=== PATIENT | female | born 1950 | race Caucasian/White ===

== ENCOUNTER 2016-09-03 14:06 | Inpatient (IN) | payer BC ==
[~2016-09-03] VITALS: Ht 170.2 cm; Wt 49.9 kg
[~2016-09-03 14:06] MED LIST: BAYER CHEWABLE81 MG PO; COLACE100 MG PO; FISH OIL 500 MG1 CAP PO; FOLATE0.4 MG PO; HYDROCODONE-APA1 TAB PO; KLOR-CON 1010 MEQ PO; MAG-OX 400 MG400 MG PO; MIRALAX17 GM PO; MULTIPLE VITAMI1 TA1 PO; PROTONIX40 MG PO; TOPROL XL25 MG PO; VITAMIN B-121000 MCG PO
[2016-09-03 15:49] LABS: BASOPHILS 0.2 % (0-2); EOSINOPHILS 0.9 % (0-7); HEMATOCRIT 45.5 % (36.0-48.0); HEMOGLOBIN 15.1 g/dL (12-16); IMMATURE GRANULOCYTES 0.2 % (0-5); LYMPHOCYTES 23.2 % (15-50); MCH 34.5 pg (26.0-34.0); MCHC 33.2 g/dL (31.0-37.0); MCV 103.9 fL (80.0-100.0); MEAN PLATELET VOLUME 9.5 fL (7.4-10.4); MONOCYTES 15.8 % (2-11); NEUTROPHILS 59.7 % (40-80); RBC 4.38 10x6/uL (4.00-5.40); RDW 14.1 % (11.5-14.5); WBC 4.3 10x3/uL (4.8-10.8)
[2016-09-03 15:50] LABS: APPEARANCE HAZY (CLEAR); BILIRUBIN 2+ (NEGATIVE); COLOR AMBER (YELLOW); GLUCOSE NEGATIVE (NEGATIVE); KETONE NEGATIVE (NEGATIVE); LEUKOCYTE ESTERASE TRACE (NEGATIVE); NITRITE NEGATIVE (NEGATIVE); PROTEIN NEGATIVE (NEGATIVE)
[2016-09-03 15:50] LABS: PLATELET COUNT 108 10x3/uL (130-400)
[2016-09-03 15:53] LABS: BACTERIA FEW /hpf (NONE SEEN); CALCIUM OXALATE CRYSTALS OCC /hpf (NONE SEEN); MUCUS >1+ /lpf (NONE SEEN); RED CELLS - URINE OCC /hpf (0-5); WHITE CELLS - URINE 0-5 /hpf (0-5)
[2016-09-03 16:03] LABS: ALBUMIN 2.3 g/dL (3.4-5.0); ALKALINE PHOSPHATASE 160 U/L (46-116); ALT (SGPT) 35 U/L (10-68); BILIRUBIN - TOTAL 1.46 mg/dL (0.2-1.3); CALC OSMOLALITY 276 mosm/kg (275-300); CALCIUM 9.2 mg/dL (8.5-10.1); CARBON DIOXIDE 35.6 mmol/L (21.0-32.0); CHLORIDE - SERUM 100 mmol/L (98-107); CREATININE - SERUM 0.6 mg/dL (0.6-1.3); GLUCOSE 120 mg/dL (74-106); POTASSIUM - SERUM 3.3 mmol/L (3.5-5.1); PROTEIN - SERUM 6.4 g/dL (6.4-8.2); SODIUM 140 mmol/L (136-145); UREA NITROGEN 5 mg/dL (7-18); eGFR NON AFRICAN AMERICAN > 90 mL/min (90-120)
[2016-09-03 20:28] LABS: UDS - AMPHET NEGATIVE QUAL (NEGATIVE); UDS - BARB NEGATIVE QUAL (NEGATIVE); UDS - BENZO POSITIVE QUAL (NEGATIVE); UDS - COCAINE NEGATIVE QUAL (NEGATIVE); UDS - METH NEGATIVE QUAL (NEGATIVE); UDS - OPIATE NEGATIVE QUAL (NEGATIVE); UDS - PCP NEGATIVE QUAL (NEGATIVE); UDS - THC NEGATIVE QUAL (NEGATIVE)
[2016-09-04 00:24] LABS: CHOL - HDL RATIO 2.1 ratio (2.3-4.1); LDL-HDL RATIO 0.8 ratio (1.5-3.5)
[2016-09-04 08:27] LABS: CALC OSMOLALITY 277 mosm/kg (275-300); CALCIUM 8.6 mg/dL (8.5-10.1); CARBON DIOXIDE 31.9 mmol/L (21.0-32.0); CHLORIDE - SERUM 102 mmol/L (98-107); CREATININE - SERUM 0.4 mg/dL (0.6-1.3); GLUCOSE 80 mg/dL (74-106); POTASSIUM - SERUM 3.2 mmol/L (3.5-5.1); SODIUM 141 mmol/L (136-145); UREA NITROGEN 7 mg/dL (7-18); eGFR NON AFRICAN AMERICAN > 90 mL/min (90-120)
--- NOTE | 2016-09-04 21:20 | NUR ---
RECEIVED PATIENT FROM ER VIA BED ACCOMPANIED BY HOSPITAL STAFF AND FAMILY. PATIENT ALERT AND ORIENTED TO TIME PLACE AND SITUATION. CAN FOLLOW COMMANDS . VSS. SEE ASSESSMENT FLOWSHEET FOR MORE DETAILS.
[2016-09-04 22:00] VITALS: BP 101/83
--- NOTE | 2016-09-04 22:30 | NUR ---
PATIENT ATTEMPTING TO GET OUT OF BED. REORIENTED PATIENT, STATES SHE HAD A HALLUCINATION OF DAUGHTER IN LAW AT BEDSIDE WITH A WHEELCHAIR. BED ALARM RESET, WILL MONITOR.
[2016-09-04 22:42] VITALS: BP 122/79; BMI 17.2
[2016-09-04 23:00] VITALS: BP 92/74
[2016-09-05] VITALS (16 sets, daily range): BP systolic 90–134; BP diastolic 58–89; Ht 170.2 cm; Wt 49.9 kg
--- NOTE | 2016-09-05 02:30 | NUR ---
PATIENT PULLED OUT IV. 3 NURSES FAILED TO RESTART IV. PATIENT ASKED FOR BREAK.
[2016-09-05 04:18] LABS: BASOPHILS 0.8 % (0-2); EOSINOPHILS 3.4 % (0-7); HEMATOCRIT 42.2 % (36.0-48.0); IMMATURE GRANULOCYTES 0.3 % (0-5); LYMPHOCYTES 47.6 % (15-50); MCH 34.5 pg (26.0-34.0); MCHC 33.2 g/dL (31.0-37.0); MCV 103.9 fL (80.0-100.0); MEAN PLATELET VOLUME 10.4 fL (7.4-10.4); MONOCYTES 13.4 % (2-11); NEUTROPHILS 34.5 % (40-80); PLATELET COUNT 128 10x3/uL (130-400); RBC 4.06 10x6/uL (4.00-5.40); RDW 13.9 % (11.5-14.5); WBC 3.6 10x3/uL (4.8-10.8)
[2016-09-05 04:39] LABS: CALCIUM 8.5 mg/dL (8.5-10.1); CARBON DIOXIDE 34.5 mmol/L (21.0-32.0); CHLORIDE - SERUM 104 mmol/L (98-107); CREATININE - SERUM 0.3 mg/dL (0.6-1.3); MAGNESIUM - SERUM 1.8 mg/dL (1.8-2.4); POTASSIUM - SERUM 3.5 mmol/L (3.5-5.1); SODIUM 144 mmol/L (136-145); eGFR NON AFRICAN AMERICAN > 90 mL/min (90-120)
[2016-09-05 04:41] LABS: CALC OSMOLALITY 281 mosm/kg (275-300); GLUCOSE 69 mg/dL (74-106); UREA NITROGEN 5 mg/dL (7-18)
--- NOTE | 2016-09-05 06:13 | NUR ---
PATIENT RESTING WELL. ALERT AND ORIENTED BUT HAVING HALLUCINATIONS OF FAMILY MEMBERS AT TIMES.
--- NOTE | 2016-09-05 08:05 | NUR ---
PT UP IN BED AWAKE WATCHING TV AT THIS TIME. ALERT AND ORIENTED WHEN ASSESSED PER QUESTIONS, PT ALSO NOTED TO HAVE SOME HALLUCINATIONS. NO ACUTE DISTRESS NOTED. AT THIS TIME ATTEMPTED TO START IV TO RIGHT FOREARM WITH NO SUCCESS. WILL NOTIFY PHYSICIANS FOR FURTHER ORDERS.
--- NOTE | 2016-09-05 09:37 | NUR ---
NOTED EPISODE OF HALLUCINATION. PT STATED TO THIS NURSE, "IF YOU SEE 2 [employer] AGENTS THEN DO ME A FAVOR, MAKE THEM UNZIP THEIR PANTS, BECAUSE THEY ARE ACTUALLY STRIPPERS." WHEN TRYING TO INFORM PT THAT THERE ARE NOT REALLY ANY FBI ANGENTS OR STRIPPERS PT THEN RESPONDED, "THIS IS NOT A JOKE, I AM SERIOUS." PT ABLE TO ANSWER ALL ORIENTATION RELATED QUESTIONS SUCH NAME, PLACE, TIME, AND SITUATION. UNABLE TO CONVINCE PT THAT THOSE INDIVIDUALS DO NOT EXIST. WILL CONTINUE PLAN OF CARE.
--- NOTE | 2016-09-05 10:03 | NUR ---
SPOKE WITH PTS SISTER IN LAW AT THIS TIME APPROVED BY PT. AT THIS TIME PT HAD SET UP A CALL IN CODE OF "MARIBEL" AND PT REQUESTS FOR STAFF TO NOTIFY SISTER IN LAW THE CALL IN CODE AND NOTIFY FAMILY. WILL CONTINUE PLAN OF CARE.
--- NOTE | 2016-09-05 11:28 | NUR ---
DR LYNN HERE, ORDERS PLACED.
--- NOTE | 2016-09-05 13:03 | NUR ---
PSYCH CONSULT FAXED TO [facility] WITH FACESHEET. SPOKE WITH CLEO FROM [facility] CONFIRMING THAT CONSULT FAX HAD BEEN RECIEVED.
--- NOTE | 2016-09-05 14:48 | NUR ---
REPORT GIVEN TO JOSE FOR PT TO BE TRANSFERRED TO ROOM 2224. NOTED ROOM TO BE TRANSFERRED TO IS NOT CLEANED FOR PT ARRIVAL YET. WILL TRANSFER PT WHEN ROOM 2224 IS CLEAN. NO ACUTE DISTRESS NOTED. WILL CONTINUE PLAN OF CARE.
--- NOTE | 2016-09-05 15:11 | NUR ---
PT TRANSFERRED AT THIS TIME TO 2224 PER ORDERS. NO ACUTE DISTRESS NOTED. PT TRASNFERRED WITH ALL PERSONAL ITEMS. NO FURTHER ACTIONS.
--- NOTE | 2016-09-05 15:20 | NUR ---
PT RESTING IN BED WITH NO VISABLE SIGNS OF PAIN OR DISCOMFORT. ASSESSMENT DONE. BED IN LOW POSITION AND CALL LIGHT WITHIN REACH. WILL CONTINUE TO MONITOR.
--- NOTE | 2016-09-05 17:52 | NUR ---
PAGEJose RUSS FOR ORDER MODIFICATIONS. PATIENT HAS NO IV.
[2016-09-06 04:00] VITALS: BP 98/56
--- NOTE | 2016-09-06 05:12 | NUR ---
PATIENT SITTING UP IN BED WITH NO VISIBLE SIGNS OF DISTRESS AND DENIES NEEDS AT THIS TIME. BED IN LOWEST POSITION AND CALL LIGHT WITHIN REACH. ENCOURAGED THE PATIENT TO CALL IF SHE HAS NEEDS.
[2016-09-06 05:31] LABS: BASOPHILS 0.5 % (0-2); EOSINOPHILS 2.7 % (0-7); HEMATOCRIT 41.5 % (36.0-48.0); HEMOGLOBIN 13.6 g/dL (12-16); IMMATURE GRANULOCYTES 0.3 % (0-5); LYMPHOCYTES 35.9 % (15-50); MCH 33.9 pg (26.0-34.0); MCHC 32.8 g/dL (31.0-37.0); MCV 103.5 fL (80.0-100.0); MEAN PLATELET VOLUME 10.2 fL (7.4-10.4); MONOCYTES 16.4 % (2-11); NEUTROPHILS 44.2 % (40-80); PLATELET COUNT 120 10x3/uL (130-400); RBC 4.01 10x6/uL (4.00-5.40); RDW 13.9 % (11.5-14.5); WBC 3.7 10x3/uL (4.8-10.8)
[2016-09-06 05:55] LABS: ALKALINE PHOSPHATASE 128 U/L (46-116); ALT (SGPT) 35 U/L (10-68); CALCIUM 8.7 mg/dL (8.5-10.1); CARBON DIOXIDE 32.2 mmol/L (21.0-32.0); CHLORIDE - SERUM 102 mmol/L (98-107); GLUCOSE 73 mg/dL (74-106); PHOSPHOROUS 3.3 mg/dL (2.5-4.9); PROTEIN - SERUM 5.6 g/dL (6.4-8.2); SODIUM 140 mmol/L (136-145)
[2016-09-06 06:03] LABS: CALC OSMOLALITY 275 mosm/kg (275-300); CREATININE - SERUM 0.4 mg/dL (0.6-1.3); MAGNESIUM - SERUM 1.3 mg/dL (1.8-2.4); UREA NITROGEN 7 mg/dL (7-18); eGFR NON AFRICAN AMERICAN > 90 mL/min (90-120)
--- NOTE | 2016-09-06 07:54 | NUR ---
LYING IN BED,WITHOUT DISTRESS.DOOR OPEN TO MONITOR
--- NOTE | 2016-09-06 08:10 | NUR ---
REPORT RECEIVED FROM MARQUIS SAMAYOA. CALL LIGHT IN REACH.
[2016-09-06 09:12] VITALS: BP 80/47
--- NOTE | 2016-09-06 10:14 | NUR ---
ASSESSMENT COMPLETED. AM MEDS ADMINISTERED. SCDs APPLIED TO BLE. BED ALARM ON. PASSWORD AND EMERGENCY CONTACT INFO OBTAINED. REPOSITIONED ON LEFT SIDE. HANK APPLIED TO REDDENED BUTTOCKS. CALL LIGHT IN REACH. WILL CONTINUE WITH PLAN OF CARE.
--- NOTE | 2016-09-06 12:05 | NUR ---
VISITOR IN ROOM. NO NEEDS VOICED AT THIS TIME.
[2016-09-06 12:31] VITALS: BP 108/62
--- NOTE | 2016-09-06 13:24 | HP ---
PATIENT: NIRMAL PERES MEDICAL RECORD: [id number] ACCOUNT: [id number] LOCATION:[id number] : 52 ADMISSION DATE: 09/04/16 HISTORY AND PHYSICAL EXAMINATION HISTORY OF PRESENT ILLNESS: A 66-year-old female admitted through the Emergency Room. She initially was taken to [facility], had a court order to admit her there for treatment for alcohol abuse and declined, was deemed medically unstable, was sent to the Emergency Room, spent greater than 24 hours in the Emergency Room due to confusion, getting released from the court order, was called for patient admission. She declined, but family insisted on admission. She is generally confused, malnourished, very limited ambulation, frequent falls. She is tolerating fluids and diet. PAST MEDICAL HISTORY: Limited historian, but has a generalized weakness, malnourishment and chronic alcohol abuse. CURRENT MEDICATIONS: LISTED ASPIRIN AND METOPROLOL LOW DOSE, WELL MULTIVITAMIN. FAMILY HISTORY: Unobtainable presently. REVIEW OF SYSTEMS: HEENT: Patient denies cephalgia or visual changes. Generally answers appropriately with confusion on some answers or anything in depth. Denies visual changes, tinnitus and epistaxis. Denies dysphagia. CARDIOVASCULAR: Denies chest pain or palpitations. PULMONARY: Denies hemoptysis, denies night sweats. GASTROINTESTINAL: Denies hematemesis, hematochezia, or melena. GENITOURINARY: Denies dysuria. MUSCULOSKELETAL: No acute changes. She does have a visible contusion ecchymosis on the left shoulder with history of frequent falls. ENDOCRINE: Denies polyuria, polydipsia, or polyphagia. PHYSICAL EXAMINATION: VITAL SIGNS: Temperature 97.5, heart rate 96, respirations 16, blood pressure is 104/72 and O2 sats 96% on room air. GENERAL: Alert and oriented to person, in no acute distress. HEENT: No cephalgia, visual changes, tinnitus, epistaxis, or dysphagia. No carotid bruits. No JVD. HEART: Regular rate and rhythm. No S3, S4. No rub. LUNGS: Clear to auscultation bilaterally. Breathing is nonlabored. ABDOMEN: Soft, nontender, cachectic appearance. EXTREMITIES: Present times 4, no edema. Moderate ecchymosis appears to be resolving on the left shoulder. NEUROLOGIC: No discrete focal deficits other than confusion. LABORATORY DATA: CBC: White count 3.6, hemoglobin 14, hematocrit 42.2 and platelets 128. Chemistry shows a sodium of 144, potassium 3.5, chloride 104, bicarbonate 34.5, BUN 5, creatinine 0.3 and magnesium 1.8. DIAGNOSTIC DATA: CT of the head shows atrophy, chronic small vessel ischemia, no acute findings. Chest x-ray shows chronic and old postoperative changes, consideration for subapical scarring, if any clinical correlation, recommendation for CT scan of the chest. HISTORY AND PHYSICAL [id number] NIRMAL PERES ASSESSMENT AND PLAN: Malnutrition, alcohol abuse, general decline, impaired mobility and contusion, left shoulder. The patient is admitted initially to the ICU. We will transfer to the floor. We will obtain an x-ray of her left shoulder. Consult case management for possible placement options, dietary for nutrition assistance, DT prophylaxis. Encourage Gatorade. Consult psychiatry for evaluation and recommendation. We will hold up home pressors until blood pressure improves. TRANSINT:[id number] Voice Confirmation ID: [id number] DOCUMENT ID: [id number] KIRSTIN LOO DO at 1324 CC: [id number] DICTATION DATE: 09/05/16 1150 EXCHANGE TROUBLE SHOOTER: 09/05/16 1307 ADM IN [facility] [address] [place] [address]
--- NOTE | 2016-09-06 14:50 | NUR ---
SLING PLACED TO LEFT ARM PER ORDER. DRY DRSG APPLIED TO RIGHT GREAT TOE PER PATIENT REQUEST. NO DRAINAGE AT THIS TIME.
[2016-09-06 16:33] VITALS: BP 86/55
--- NOTE | 2016-09-06 16:40 | NUR ---
SISTER CALLED AND DEMANDED SHE BE PUT THE EMERGENCY CONTACT AND THE ONE TO MAKE THE DECISIONS. I EXPLAINED TO HER THAT THE PATIENT REQUESTED FOR SOMEONE ELSE TO BE THE EVERGENCY CONTACT AND AT THE THE TIME PATIENT WAS ABLE TO ANSWER ALL OF MY QUESTIONS CORRECTLY SO I HAD TO RESPECT HER WISHES.
--- NOTE | 2016-09-06 18:32 | NUR ---
NO CHANGES IN INITIAL ASSESSMENT. CALL LIGHT IN REACH. BED ALARM ON. SCDs TO BLE. WILL CONTINUE WITH PLAN OF CARE.
[2016-09-06 20:00] VITALS: BP 96/68
[2016-09-07] VITALS: BP 96/56
--- NOTE | 2016-09-07 02:00 | NUR ---
PT IN BED WITH NO DISTRESS. RESPIRATIONS EVEN AND UNLABORED. SIDE RAILS X 2. BED IS LOW. CALL LIGHT IN REACH.
[2016-09-07 04:00] VITALS: BP 91/69
[2016-09-07 04:33] LABS: BASOPHILS 0.6 % (0-2); EOSINOPHILS 4.2 % (0-7); HEMATOCRIT 38.4 % (36.0-48.0); LYMPHOCYTES 43.2 % (15-50); MCH 34.3 pg (26.0-34.0); MCHC 33.9 g/dL (31.0-37.0); MEAN PLATELET VOLUME 10.2 fL (7.4-10.4); MONOCYTES 16.1 % (2-11); NEUTROPHILS 35.9 % (40-80); PLATELET COUNT 118 10x3/uL (130-400); RBC 3.79 10x6/uL (4.00-5.40); RDW 13.6 % (11.5-14.5); WBC 3.1 10x3/uL (4.8-10.8)
[2016-09-07 04:34] LABS: MCV 101.3 fL (80.0-100.0)
[2016-09-07 04:54] LABS: ALBUMIN 1.9 g/dL (3.4-5.0); ALKALINE PHOSPHATASE 120 U/L (46-116); ALT (SGPT) 40 U/L (10-68); BILIRUBIN - DIRECT 0.52 mg/dL (0.00-0.30); BILIRUBIN - INDIRECT 0.45 mg/dL (0.00-1.00); BILIRUBIN - TOTAL 0.97 mg/dL (0.2-1.3); CALC OSMOLALITY 270 mosm/kg (275-300); CALCIUM 8.2 mg/dL (8.5-10.1); CARBON DIOXIDE 30.1 mmol/L (21.0-32.0); CHLORIDE - SERUM 101 mmol/L (98-107); CREATININE - SERUM 0.3 mg/dL (0.6-1.3); GLUCOSE 82 mg/dL (74-106); MAGNESIUM - SERUM 1.3 mg/dL (1.8-2.4); PHOSPHOROUS 3.5 mg/dL (2.5-4.9); PROTEIN - SERUM 5.4 g/dL (6.4-8.2); SODIUM 137 mmol/L (136-145); UREA NITROGEN 7 mg/dL (7-18); eGFR NON AFRICAN AMERICAN > 90 mL/min (90-120)
[2016-09-07 04:58] LABS: POTASSIUM - SERUM 2.8 mmol/L (3.5-5.1)
--- NOTE | 2016-09-07 08:00 | NUR ---
SCHEDULED MEDICATIONS ADMINISTERED AT THIS TIME. ALERT AND ORIENTED. NO IV ACCESS AT THIS TIME. LEFT A VOICEMAIL ON AMOR'S PHONE FOR IV ACCESS. BED ALARM ON AND CALL LIGHT IN REACH, WILL CONTINUE WITH PLAN OF CARE.
--- NOTE | 2016-09-07 09:57 | NUR ---
SPOKE WITH AMOR AT THIS TIME FOR IV ACCESS.
--- NOTE | 2016-09-07 11:05 | NUR ---
INITIATED THIAMINE INJECTION AT THIS TIME TO RIGHT HAND AT THIS TIME.
[2016-09-07 12:44] VITALS: BP 122/73
--- NOTE | 2016-09-07 13:41 | NUR ---
Patient was admitted thru the ER. She was sent to [facility] for medical stabilization prior to ETOH rehab at [facility]. [facility] sent patient as pulse was greater than 120, O2 sat was 88% and temp 99.6. NO court order with patient's paperwork. TC to [facility] Engineer's Office at 1250. Contact phone number [phone]. Referred to [phone]. No answer. Left voice mail message. Await CB. Reportedly the patient is to return to court appointed rehab program.
--- NOTE | 2016-09-07 16:30 | NUR ---
SPOKE WITH OC VERGARA AT DR REUDA'S OFFICE AT THIS TIME IN REGARDS TO PAIN MEDICATION. NEW ORDER GIVEN FOR NORCO-5 Q4HP.
--- NOTE | 2016-09-07 16:31 | NUR ---
PATIENT WAS ADMITTED TO [facility] 08/31-09/02/ SHE COULD NOT PARTICIPATE IN THE RESIDENTIAL PROGRAM SHE WAS INCONTIENT OF URINE AND FECES. SHE REQUIRED ASSISTANCE FOR FEEDING, BATHING, MOBILIZATION ETC. PER [place] LETTER TO [facility], KANNAN WALTERS HAD CONTACTED [facility]ULT [facility] SERVICES AND PATIENT'S PCP, DR RUEDA. 09/03/16 THE PATIENT WAS SENT FROM [facility] TO [facility] BECAUSE DR MANCUSO STATED SHE WAS NOT MEDICALLY STABLE. PATIENT DECLINED TO BE ADMITTED TO THE HOSPITAL. NO ONE TO ASSIST HER AT HOME. FAMILY REFUSED TO ACCEPT. PATIENT WAS NOT MAKING RATIONAL DECISIONS. ER STAFF ATTEMPTED TO FIND A PSYCH FACILITY TC TO [facility] - DECLINED TC TO [facility] BEDS TC TO [place]- ADVISED PATIENT NEEDED GERIPSYCH. [facility] WORKER - NO NAME DOCUMENTED- PHONE NUMBER [phone], EXT [phone]. REC TC FROM NAVIN AWAN, PATIENT'S SISTER IN LAW CALLED. PT'S , PARAM, WAS ADMITTED TO THE [facility] 09/03/16. THE PATIENT HAS NO CHILDREN. SHE HAS A SISTER IN [place]. HER OTHER SISTER IN LAW LIVES IN [place]. MRS AWAN STATES THE PATIENT CALLED & REQUESTED FOR HER TO RUN AN AD IN THE NEWSPAPER FOR A MAN TO STAY WITH HER. NAVIN AWAN SISTER IN LAW [phone]. FIORELLA SHARP IS SISTER IN LAW FROM [place]. WILL ASSSIT W/ DISCHARGE PLANNING.PATIENT WAS ADMITTED TO [facility] 08/31-09/02/ SHE COULD NOT PARTICIPATE IN THE RESIDENTIAL PROGRAM SHE WAS INCONTIENT OF URINE AND FECES. SHE REQUIRED ASSISTANCE FOR FEEDING, BATHING, MOBILIZATION ETC. PER [place] LETTER TO [facility], KANNAN WALTERS HAD CONTACTED [facility] AND PATIENT'S PCP, DR RUEDA. 09/03/16 THE PATIENT WAS SENT FROM [facility] TO [facility] BECAUSE DR MANCUSO STATED SHE WAS NOT MEDICALLY STABLE. PATIENT DECLINED TO BE ADMITTED TO THE HOSPITAL. NO ONE TO ASSIST HER AT HOME. FAMILY REFUSED TO ACCEPT. PATIENT WAS NOT MAKING RATIONAL DECISIONS. ER STAFF ATTEMPTED TO FIND A PSYCH FACILITY TC TO [facility] - DECLINED TC TO [facility] NO BEDS TC TO [place] [facility]- ADVISED PATIENT NEEDED GERIPSYCH. [facility] WORKER - NO NAME DOCUMENTED- PHONE NUMBER [phone], EXT [phone]. REC TC FROM NAVIN AWAN, PATIENT'S SISTER IN LAW CALLED. PT'S , PARAM, WAS ADMITTED TO THE [facility] 09/03/16. THE PATIENT HAS NO CHILDREN. SHE HAS A SISTER IN [place]. HER OTHER SISTER IN LAW LIVES IN [place]. MRS AWAN STATES THE PATIENT CALLED & REQUESTED FOR HER TO RUN AN AD IN THE NEWSPAPER FOR A MAN TO STAY WITH HER. NAVIN AWAN SISTER IN LAW [phone]. FIORELLA SHARP IS SISTER IN LAW FROM [place]. CM WILL ASSSIT W/ DISCHARGE PLANNING.
--- NOTE | 2016-09-07 17:05 | NUR ---
WILL REFER TO [facility] PSYCH UNIT IN THE AM.
[2016-09-07 20:00] VITALS: BP 81/50
--- NOTE | 2016-09-07 20:00 | NUR ---
ASSESSMENT PER FLOWSHEET. SALINE LOCK PATENT RT HAND. SR UP X2 CALL LIGHT WITHIN REACH. HOB UP 35 DEGREES. BED ALARM BED ON. SLING TO LEFT ARM FX CLAVICLE. PT REMAINS CONFUSED TO TIME AND SITUATION. DOOR OPEN.
--- NOTE | 2016-09-07 21:00 | NUR ---
MEDS GIVEN PER MAR.
--- NOTE | 2016-09-07 22:00 | NUR ---
UP WITH HELP TO BR VOIDS ASSISTED BACK TO BED.
--- NOTE | 2016-09-08 | NUR ---
EYES CLOSED RESPIRATIONS WITH EASE AND UNLABORED.
--- NOTE | 2016-09-08 03:00 | NUR ---
EYES CLOSED RESPIRATIONS WITH EASE AND UNLABORED.
[2016-09-08 05:02] LABS: BASOPHILS 1.1 % (0-2); EOSINOPHILS 4.5 % (0-7); HEMATOCRIT 39.3 % (36.0-48.0); HEMOGLOBIN 13.2 g/dL (12-16); IMMATURE GRANULOCYTES 0.3 % (0-5); LYMPHOCYTES 47.5 % (15-50); MCH 34.3 pg (26.0-34.0); MCHC 33.6 g/dL (31.0-37.0); MCV 102.1 fL (80.0-100.0); MEAN PLATELET VOLUME 10.3 fL (7.4-10.4); MONOCYTES 18.4 % (2-11); NEUTROPHILS 28.2 % (40-80); RBC 3.85 10x6/uL (4.00-5.40); RDW 13.7 % (11.5-14.5); WBC 3.6 10x3/uL (4.8-10.8)
[2016-09-08 05:06] LABS: PLATELET COUNT 146 10x3/uL (130-400)
[2016-09-08 05:11] VITALS: BP 92/53
--- NOTE | 2016-09-08 05:20 | NUR ---
RESTING QUIETLY DENIES NEEDS.
[2016-09-08 05:21] LABS: ALBUMIN 2.1 g/dL (3.4-5.0); ALKALINE PHOSPHATASE 135 U/L (46-116); BILIRUBIN - TOTAL 0.89 mg/dL (0.2-1.3); CALC OSMOLALITY 270 mosm/kg (275-300); CALCIUM 8.3 mg/dL (8.5-10.1); CARBON DIOXIDE 30.9 mmol/L (21.0-32.0); CHLORIDE - SERUM 103 mmol/L (98-107); CREATININE - SERUM 0.3 mg/dL (0.6-1.3); GLUCOSE 85 mg/dL (74-106); PROTEIN - SERUM 5.5 g/dL (6.4-8.2); SODIUM 137 mmol/L (136-145); UREA NITROGEN 7 mg/dL (7-18); eGFR NON AFRICAN AMERICAN > 90 mL/min (90-120)
[2016-09-08 05:22] LABS: ALT (SGPT) 54 U/L (10-68)
--- NOTE | 2016-09-08 11:08 | NUR ---
CM REC. PHONE CALL FROM NITIN CORNELIUS STATING THE PATIENTS COURT ORDER WAS DISSOLVED WEDNESDAY.
--- NOTE | 2016-09-08 12:25 | NUR ---
CM REASSESSMENT NOTE: CM SPOKE WITH PATIENT ALONG WITH HER NEIGHBOR FRIENDS (KIRSTIN AND JUSTUS SANTA) WITH HER PERMISSION. PATIENT DECIDED A SNF FACILITY WOULD HELP GET HER STRONGER. PATIENT SIGNED THE CARLO FORM WITH KANNAN [facility], [place], AND [facility].
--- NOTE | 2016-09-08 13:01 | NUR ---
NUTRITION MONITORING & EVAL CHART REVIEWED, PT VISIT. TOLERATING REG DIET WITH 50% INTAKE RECENT MEALS. WILL CONTINUE TO HONOR FOOD PREFERENCES MONITOR PO INTAKE. RD FOLLOWING
[2016-09-08 13:56] VITALS: BP 131/85
--- NOTE | 2016-09-08 14:55 | NUR ---
AWAKE AND ALERT. ORIENTED X3 AT THIS TIME. NO C/O VOICED. SLING REPOSITIONED TO LEFT ARM FOR COMFORT. PATIENT REQUESTED DRESSING TO RIGHT GREAT TOE BE CHANGED. WOUND IS LESS THAN 1 CM, NON ODIFEROUS. CLEANED WITH NS AND DRESSING REPLACED. DENIES NEEDS.
--- NOTE | 2016-09-08 14:59 | NUR ---
CM REASSESSMENT NOTE: PATIENT WAS NOT AGREEABLE TO A REFERRAL TO [facility] THIS AM SHE STATED SHE WOULD NOT GO OUT OF TOWN.
--- NOTE | 2016-09-08 16:37 | NUR ---
CM REASSESSMENT NOTE: PATIENT HAS BEEN ACCEPTED TO [facility] WILL PICK HER UP AND SHE WILL BE PLACED IN A SKILLED BED.
--- NOTE | 2016-09-08 16:46 | NUR ---
REPORT CALLED TO ALEXANDRA RENAE AT THE [facility]
--- NOTE | 2016-09-08 17:00 | NUR ---
CM REASSESSMENT NOTE: PATIENT WAS DENIED [facility] AND [place]. [facility] ACCEPTED PATIENT SHE IS GOING BY FACILITY [facility] TO A SKILLED BED.
--- NOTE | 2016-09-08 17:29 | NUR ---
DISCHARGE PAPERS AND INSTRUCTIONS GIVEN TO PT AND THE [facility], QUESTIONS ANSWERED, IV REMOVED TIP INTACT, DISCHARGED PER WC WITH BELONGINGS TO THE PINES
== END 2016-09-08 17:30 | DRG 897 ==
LOC: D.ER 14:06 → D.MS 09-04 20:51 → D.ICU 09-04 20:51 → D.MS 09-05 15:15
PROVIDERS: Emergency Medicine; Family Medicine; ADMIT Family Medicine
DX: F10.239 Alcohol dependence with withdrawal, unspecified (principal); E46 Unspecified protein-calorie malnutrition; Z68.1 Body mass index [BMI] 19.9 or less, adult; S42.032A Displaced fracture of lateral end of left clavicle, initial encounter for closed fracture; X58.XXXA Exposure to other specified factors, initial encounter; G62.9 Polyneuropathy, unspecified; L97.519 Non-pressure chronic ulcer of other part of right foot with unspecified severity; E87.6 Hypokalemia; F17.200 Nicotine dependence, unspecified, uncomplicated

== ENCOUNTER 2016-10-05 19:32 | Emergency (ER) | payer BC ==
[2016-09-05 11:27] VITALS: BMI 17.2
== END 2016-10-05 21:17 | disposition home or self-care (01) ==
LOC: D.ER 19:32
DX: S52.501A Unspecified fracture of the lower end of right radius, initial encounter for closed fracture (principal); S52.601A Unspecified fracture of lower end of right ulna, initial encounter for closed fracture; X58.XXXA Exposure to other specified factors, initial encounter; Y93.89 Activity, other specified; Y92.89 Other specified places as the place of occurrence of the external cause; R44.1 Visual hallucinations; F17.200 Nicotine dependence, unspecified, uncomplicated

== ENCOUNTER → 2017-04-24 11:29 | Outpatient (CLI) | payer MEDICARE ==
[2016-09-05 11:27] VITALS: BMI 17.2
== END | disposition home or self-care (01) ==
LOC: D.LABREF 11:29
DX: S91.301A Unspecified open wound, right foot, initial encounter (principal); M79.671 Pain in right foot

== ENCOUNTER 2018-03-01 13:39 | Outpatient (CLI) | payer MEDICARE, OTHER ==
[~2018-03-01] VITALS: Ht 170.2 cm; Wt 61.8 kg
[2018-03-01 14:22] VITALS: BP 144/81; Ht 170.2 cm; Wt 61.8 kg
== END 2018-03-01 16:15 | disposition home or self-care (01) ==
LOC: D.OPS 13:39
DX: D45 Polycythemia vera (principal); Z01.812 Encounter for preprocedural laboratory examination

== ENCOUNTER 2018-03-23 11:39 | Outpatient (CLI) | payer MEDICARE, OTHER ==
[~2018-03-23] VITALS: Ht 170.2 cm; Wt 63.6 kg
[2018-03-23 12:51] VITALS: BP 117/70; Ht 170.2 cm; Wt 63.6 kg
--- NOTE | 2018-03-23 13:16 | NUR ---
1310 PROC. COMPLETED DENIES PROBLEMS. DECLINED OFFER OF LIQUIDS. STATES ALL SHE WANTS IS TO GET OUTSIDE AND HAVE A CIGARETTE.
--- NOTE | 2018-03-23 13:23 | NUR ---
1312 POST VS 112/ 98 18 98.7 98% 1324 VOIDS, RELEASED IN WC.
== END 2018-03-23 13:24 | disposition home or self-care (01) ==
LOC: D.OPS 11:39
DX: D45 Polycythemia vera (principal)